=== PATIENT | male | born 1950 | race Caucasian/White ===

== ENCOUNTER 2020-07-11 06:47 | Inpatient (IN) | payer MEDICARE ==
--- NOTE | 2020-07-11 07:22 | RADIOLOGY REPORT (SQ) ---
EXAM DESCRIPTION: CT HEAD WITHOUT IV CONTRAST COMPLETED DATE/TME: 07/11/2020 07:06 CLINICAL HISTORY: 70 years Male, stroke symptoms COMPARISON: None. TECHNIQUE: No contrast. Coronal and sagittal reformat. This exam was performed according to our departmental dose-optimization program, which includes automated exposure control, adjustment of the mA and/or kV according to patient size and/or use of iterative reconstruction technique. FINDINGS: No hemorrhage or infarct. [id number] diminished attenuation of bihemispheric white matter probably due to white matter microangiopathy. No mass, mass effect, or midline shift. Atherosclerosis. Moderate left maxillary mucosal thickening. Left frontal ethmoid drainage catheter. Frontal cranial defect associated with the frontal sinus. Brain and extra-axial structures appear otherwise intact. IMPRESSION: 1. No acute findings. 2. Advanced white matter microangiopathy pattern. Differential diagnosis includes other white matter and vasogenic disease processes. Recommend comparison with prior exams and/or further MRI/MRA or contrast CT/CTA surveillance. 3. Chronic sinusitis and drainage catheter.
--- NOTE | 2020-07-11 07:23 | ER Document Report ---
ED General - General Chief Complaint: S/S of Possible Stroke Stated Complaint: POSSIBLE STROKE Time Seen by Provider: 07/11/20 07:11 - HPI Notes: Chief complaint: Possible stroke History of present illness: 70-year-old male with prior history of hemorrhagic stroke [place] state greater than 5 years ago, cigarette smoking, hypertension and diabetes stated that he was in his usual state at bedtime when he went to sleep. He awakened about 4:30 AM and attempted to get up to the bathroom. At that time he had difficulty bearing weight on his left lower extremity and also noted clumsiness and difficulty using his left upper extremity. He denies any sensory changes. He has had slight dull headache. He denies any nausea or vomiting. He denies visual changes or difficulty swallowing or speaking. Symptoms are ongoing. He indicates that his strength is improved somewhat in left upper extremity but impairment of left lower extremity is basically unchanged. - Related Data Allergies/Adverse Reactions: No Known Allergies Allergy (Unverified 07/11/20 06:49) Past Medical History - General Information source: Patient - Social History Smoking Status: Current Every Day Smoker Frequency of alcohol use: None Drug Abuse: None Family History: Reviewed & Not Pertinent - Past Medical History Cardiac Medical History: Reports: Hx Hypercholesterolemia, Hx Hypertension Neurological Medical History: Reports: Hx Cerebrovascular Accident Endocrine Medical History: Reports: Hx Diabetes Mellitus Type 2 Malignancy Medical History: Reports Hx Renal (Kidney) Cancer Past Surgical History: Reports: Other - Previous left nephrectomy Review of Systems - Review of Systems Notes: Constitutional: Negative for fever. HENT: Negative for sore throat. Eyes: Negative for visual changes. Cardiovascular: Negative for chest pain. Respiratory: Negative for shortness of breath. Gastrointestinal: Negative for abdominal pain, vomiting or diarrhea. Genitourinary: Negative for dysuria. Musculoskeletal: Negative for back pain. Skin: Negative for rash. Neurological: As per HPI. 10 point ROS negative except as marked above and in HPI. Physical Exam - Vital signs Vitals: Pulse Resp BP Pulse Ox 62 22 H 147/92 H 94 07/11/20 06:47 07/11/20 06:47 07/11/20 06:47 07/11/20 06:47 - Notes Notes: GENERAL: Well-developed well-nourished male approximately stated age appearing in no acute distress. SKIN: Good turgor no rashes. HEAD: Normocephalic atraumatic. EYES: PERRLA. EOMI. Conjunctivae and sclerae clear. EARS: CANALS AND TMS CLEAR. NOSE: CLEAR. MOUTH: Moist mucosa. Good dentition. No stridor or edema. No drooling. NECK: Supple. No masses or thyromegaly. No adenopathy. Carotids 2+ without bruits. No JVD. BACK: Symmetrical without tenderness. CHEST: Respirations unlabored. Breath sounds clear and symmetrical. HEART: Regular rhythm. No murmur gallop or rub. ABDOMEN: Soft nontender without masses, organomegaly or rebound. Bowel sounds normally active. No bruits. GENITALIA: Deferred. EXTREMITIES: No edema. No calf tenderness. Cap refill less than 1.5 seconds. Dorsalis pedis and posterior tibial pulses 3+ and symmetrical. NEUROLOGICAL: GCS 15. Alert and oriented x3. Fluent speech. Cranial nerves II through XII intact. Sensory exam is normal. Minimal weakness left upper extremity. Mild unsteadiness in finger-nose testing on the left. Finger-nose testing on the right is normal. Patient has minimal ability to lift his left lower extremity off the stretcher. PSYCHIATRIC: Appropriate affect. Course - Re-evaluation Re-evalutation: 07/11/20 07:33 Patient's neurologic exam is unchanged at this time. CT report from radiologist reviewed. The patient has microvascular changes which appear chronic. No bleeding. CTA of head and neck have been requested and I have contacted stroke center at [facility] to request transfer. 07/11/20 07:47 Case was reviewed with on-call neurologist at [facility], Dr. Enrique Walker. He agrees with plan to get CTA of head and neck. If there is any significant abnormality on this study he would wish to discuss case further. Otherwise he would feel that current findings are most consistent with a lacunar infarct and would recommend admission locally by our hospitalist. These recommendations have been discussed with the patient at this time. 07/11/20 10:15 This man has scattered atherosclerotic lesions on his CTA head and neck per radiologist. The patient did not meet criteria for administration ofTPA. There are no focal lesions which appear to be amenable to intervention. Patient is actually beginning to move the left lower extremity now showing definite improvement. He will be admitted by the hospitalist service Dr. Dill. 07/11/20 10:17 - Vital Signs Vital signs: Temp Pulse Resp BP Pulse Ox 98 F 70 17 130/80 H 97 07/11/20 10:17 07/11/20 10:00 07/11/20 11:00 07/11/20 10:00 07/11/20 11:00 - Laboratory Results Result Diagrams: 07/11/20 07:08 07/11/20 07:08 Laboratory Results Interpreted: 07/11/20 07/11/20 07:08 07:08 WBC 12.9 H RDW 14.6 H Absolute Neuts (auto) 10.4 H Seg Neutrophils % 80.7 H BUN 31 H Glucose 160 H Critical Laboratory Results Reviewed: No Critical Results - Radiology Results Radiology Results Interpreted: 07/11/20 07:[address] 07/11/20 00:00 IMPRESSION: 1. No acute findings. 2. Advanced white matter microangiopathy pattern. Differential diagnosis includes other white matter and vasogenic disease processes. Recommend comparison with prior exams and/or further MRI/MRA or contrast CT/CTA surveillance. 3. Chronic sinusitis and drainage catheter. Critical Radiology Results Reviewed: Yes Attending or Supervising Physician who Reviewed Radiology: JYOTSNA THURMAN E - EKG Interpretation by Me Additional EKG results interpreted by me: 07/11/20 07:22 Twelve-lead EKG reviewed by me contemporaneously: 0709 hrs. Indication for study: CVA Rhythm: Normal sinus Rate: 61 Intervals: Normal intervals QRS axis: +[address]/T wave changes: None Comparison with prior tracing: None Interpretation: Normal tracing Discharge - Discharge Clinical Impression: Acute CVA (cerebrovascular accident) Condition: Good Disposition: ADMITTED INPATIENT Admitting Provider: Fuentes (Hospitalist) Unit Admitted: [facility]
[2020-07-11 07:27] LABS: INTERNATIONAL RATION (INR) 0.98; PARTIAL THROMBOPLASTIN TIME 24.3 SEC (23.5-35.8); PROTHROMBIN TIME 13.2 SEC (11.4-15.4)
[2020-07-11 07:32] LABS: ABSOLUTE EOSINOPHILS # (AUTO) 0.1 10^3/uL (0.0-0.6); ABSOLUTE LYMPHOCYTES (AUTO) 1.8 10^3/uL (0.5-4.7); ABSOLUTE MONOCYTES (AUTO) 0.6 10^3/uL (0.1-1.4); ABSOLUTE NEUT (AUTO) 10.4 10^3/uL (1.7-8.2); BASOPHILS % (AUTO) 0.2 % (0-2); EOSINOPHILS % (AUTO) 0.4 % (0-6); HEMATOCRIT 45.6 % (37.9-51.0); HEMOGLOBIN 15.7 g/dL (13.5-17.0); MEAN CORPUSCULAR HEMOGLOBIN 32.4 pg (27.0-33.4); MEAN CORPUSCULAR HGB CONC 34.5 g/dL (32.0-36.0); MEAN CORPUSCULAR VOLUME 94 fl (80-97); MONOCYTES % (AUTO) 4.7 % (3-13); PLATELET COUNT 177 10^3/uL (150-450); RED BLOOD COUNT 4.86 10^6/uL (4.35-5.55); RED CELL DISTRIBUTION WIDTH 14.6 % (11.5-14.0); SEGMENTED NEUTROPHILS % (AUTO) 80.7 % (42-78); TOTAL CELLS COUNTED % (AUTO) 100 %; WHITE BLOOD COUNT 12.9 10^3/uL (4.0-10.5)
[2020-07-11 07:51] LABS: ALKALINE PHOSPHATASE 65 U/L (38-126); ANION GAP 6 (5-19); ASPARTATE AMINO TRANSFERASE 22 U/L (17-59); BILIRUBIN,DIRECT 0.2 mg/dL (0.0-0.4); BILIRUBIN,TOTAL 0.6 mg/dL (0.2-1.3); BLOOD UREA NITROGEN 31 mg/dL (7-20); CALCIUM 9.5 mg/dL (8.4-10.2); CARBON DIOXIDE 27 mmol/L (22-30); CHLORIDE 107 mmol/L (98-107); CREATINE KINASE 78 U/L (55-170); GLUCOSE 160 mg/dL (75-110); TOTAL PROTEIN 6.7 g/dL (6.3-8.2)
[2020-07-11 08:03] LABS: CREATINE KINASE MB 2.13 ng/mL (<4.55)
[2020-07-11 08:05] LABS: TROPONIN I < 0.012 ng/mL
--- NOTE | 2020-07-11 08:20 | RADIOLOGY REPORT (SQ) ---
EXAM DESCRIPTION: CHEST SINGLE VIEW IMAGES COMPLETED DATE/TIME: 07/11/2020 7:34 am REASON FOR STUDY: STROKE COMPARISON: None. EXAM PARAMETERS: NUMBER OF VIEWS: One view. TECHNIQUE: Single frontal radiographic view of the chest acquired. RADIATION DOSE: NA LIMITATIONS: None. FINDINGS: LUNGS AND PLEURA: No opacities, masses or pneumothorax. No pleural effusion. MEDIASTINUM AND HILAR STRUCTURES: No masses. Contour normal. HEART AND VASCULAR STRUCTURES: Heart normal in size. Normal vasculature. BONES: No acute findings. HARDWARE: None in the chest. OTHER: No other significant finding. IMPRESSION: NO ACUTE RADIOGRAPHIC FINDING IN THE CHEST. TECHNICAL DOCUMENTATION: JOB ID: [id number] 2010 [employer]- All Rights Reserved Reading location - IP/workstation name: [email or web address]
--- NOTE | 2020-07-11 09:14 | RADIOLOGY REPORT (SQ) ---
EXAM DESCRIPTION: CTA HEAD IMAGES COMPLETED DATE/TIME: 07/11/2020 8:56 am REASON FOR STUDY: cva COMPARISON: None. TECHNIQUE: Post IV contrast scanning, thin section axial imaging through the brain to evaluate the a rterial structures. Source and MIP images are saved and reviewed on PACS. Advanced 3D imaging as volume-rendering, MIPs, SSD performed? yes All CT scanners at this facility use dose modulation, iterative reconstruction, and/or weight based d osing when appropriate to reduce radiation dose to as low as reasonably achievable (ALARA). [facility]: Dose Right [facility]: CareDose [facility]: Dose Right [facility]: Teradose 4D [facility]: Movista CONTRAST TYPE AND DOSE: contrast/concentration: Isovue 350.00 mmol/ml; Total Contrast Delivered: 80. 0 ml; Total Saline Delivered: 75.0 ml RENAL FUNCTION: BUN 31 creatinine 1.16. LIMITATIONS: None. FINDINGS: [place]: The anterior, middle, posterior cerebral arteries are all patent. No ev idence of aneurysm or focal stenosis. POSTERIOR CIRCULATION: The distal vertebral arteries are patent as is the basilar artery. No aneurysm . BRAIN: No gross enhancing lesions as visualized. BONES: Intact as visualized. SINUSES: No fluid or mucosal thickening. OTHER: No other significant finding. IMPRESSION: NO CTA EVIDENCE OF STENOSIS OR ANEURYSM OF THE [place]. TECHNICAL DOCUMENTATION: JOB ID: [id number] Quality ID # [id number]: Final reports with documentation of one or more dose reduction techniques (e.g., Au tomated exposure control, adjustment of the mA and/or kV according to patient size, use of iterative reconstruction technique) 2010 [employer]- All Rights Reserved Reading location - IP/workstation name: [email or web address]
--- NOTE | 2020-07-11 09:18 | RADIOLOGY REPORT (SQ) ---
EXAM DESCRIPTION: CTA NECK IMAGES COMPLETED DATE/TIME: 07/11/2020 8:56 am REASON FOR STUDY: cva COMPARISON: None. TECHNIQUE: Axial dynamic scanning technique with dynamic contrast enhancement through the extra-crankshaft straightener nial carotid and vertebral arteries. Multiplanar reconstruction. 3-D MIPS and Volume-rendered imag es acquired at the workstation and saved to PACS. Images are reviewed in soft tissue, bone, lung w indows. All CT scanners at this facility use dose modulation, iterative reconstruction, and/or weight based d osing when appropriate to reduce radiation dose to as low as reasonably achievable (ALARA). [facility]: Dose Right [facility]: CareDose [facility]: Dose Right [facility]: Teradose 4D [facility]: Friends Around CONTRAST TYPE AND DOSE: 80 mL Omnipaque 350- low osmolar. RENAL FUNCTION: BUN 31 creatinine 1.16. LIMITATIONS: None. FINDINGS: AORTIC ARCH: Normal three-vessel origin. Bilateral subclavian arteries are patent. No d issection. RIGHT CAROTIDS: Patent common, internal and external carotid arteries without suggestion of significa nt stenosis or irregular plaque. No dissection. RIGHT VERTEBRAL: Small vessel which terminates at the PICA. Patent. No dissection. LEFT CAROTIDS: Patent common, internal and external carotid arteries without suggestion of significan t stenosis or irregular plaque. Calcified plaque in the carotid bulb. No dissection. LEFT VERTEBRAL: Dominant vessel. Calcified plaque in the distal vertebral artery. Patent. No disse ction. OTHER: No other significant finding. OTHER: 3-D reconstructions confirm findings. IMPRESSION: SCATTERED CALCIFIED PLAQUE DESCRIBED. NO HIGH-GRADE STENOSIS OR OCCLUSION. COMMENT: Quality ID #[id number]: Measurements of distal internal carotid diameter were used as the denomina tor for stenosis measurement. TECHNICAL DOCUMENTATION: JOB ID: [id number] Quality ID # [id number]: Final reports with documentation of one or more dose reduction techniques (e.g., Au tomated exposure control, adjustment of the mA and/or kV according to patient size, use of iterative reconstruction technique) 2010 [employer]- All Rights Reserved Reading location - IP/workstation name: [email or web address]
[2020-07-11] MEDS ORDERED: ONDANSETRON HCL INJ/PF 4 MG/2 ML SDV IV PRN (13:03)
[2020-07-11] MEDS ORDERED: ACETAMINOPHEN 325 MG TABLET PO PRN ×2 (13:03→13:12)
[2020-07-11] MEDS ORDERED: MAG HYDROX/AL HYDROX/SIMETH SUSP 30 ML UDCUP PO PRN (13:03)
[2020-07-11] MEDS ORDERED: DEXTROSE 40% GEL 15 GM TUBE PO PRN ×2 (13:11)
[2020-07-11] MEDS ORDERED: DEXTROSE 50%-WATER 25 GM/50 ML DISP.SYRIN IV PRN ×2 (13:11)
[2020-07-11] MEDS ORDERED: GLUCAGON,HUMAN RECOMB 1 MG INJ IM PRN (13:11)
--- NOTE | 2020-07-11 13:32 | PDOC H&P ---
History of Present Illness Admission Date/PCP: 07/11/20 10:22 Patient complains of: Left-sided weakness History of Present Illness: GABY CABRERA is a 70 year old male with history of diabetes mellitus-diet controlled, CVA with hemorrhage [unknown if ischemic with hemorrhagic conversion versus pure hemorrhagic], hyperlipidemia, left renal cancer status post nep hrectomy, who presents to the hospital with complaints of sudden onset left- sided weakness. His symptoms were noted upon waking up this morning around 4:30 AM. Last known normal was last night prior to sleep around 9 PM. His deficits include left arm weakness, left leg weakness and his daughter noted some facial droop. He had a prior stroke about 6 years ago when he was in [place] and noted that there was hemorrhage at that time. He states that no intervention was done and he was discharged with aspirin and statin. He later stopped taking his statin but was restarted on atorvastatin low-dose by his diabetes doctor a few days ago. He denies other neurological deficits. He states from his old stroke, his presenting symptom at that time was disequilibrium but at the time of discharge you believe you have any deficits. Past Medical History Cardiac Medical History: Reports: Hyperlipidema, Hypertension Endocrine Medical History: Reports: Diabetes Mellitus Type 2 Malignancy Medical History: Reports: Renal (Kidney) Cancer Past Surgical History Past Surgical History: Reports: Other - Previous left nephrectomy Social History Information Source: Patient, Relative Lives with: Alone Smoking Status: Current Every Day Smoker Frequency of Alcohol Use: Rare Hx Recreational Drug Use: No - Advance Directive Resuscitation Status: Full Code Family History Family History: DM, Hypertension Parental Family History Reviewed: Yes Children Family History Reviewed: Yes Sibling(s) Family History Reviewed.: Yes Medication/Allergy Allergies/Adverse Reactions: No Known Allergies Allergy (Unverified 07/11/20 06:49) Review of Systems Constitutional: ABSENT: chills, fever(s) Eyes: ABSENT: visual disturbances Nose, Mouth, and Throat: ABSENT: headache(s) Cardiovascular: ABSENT: chest pain Respiratory: ABSENT: dyspnea Gastrointestinal: ABSENT: abdominal pain, nausea, vomiting Musculoskeletal: PRESENT: other - Muscle cramping in his left leg left joint pain in the knee Integumentary: ABSENT: diaphoresis Neurological: PRESENT: weakness. ABSENT: confusion, dizziness Psychiatric: ABSENT: anxiety Endocrine: ABSENT: polyuria Hematologic/Lymphatic: ABSENT: lymphadenopathy Allergic/Immunologic: ABSENT: seasonal rhinorrhea Physical Exam Vital Signs: Temp Pulse Resp BP Pulse Ox 98 F 70 17 130/80 H 97 07/11/20 10:17 07/11/20 10:00 07/11/20 11:00 07/11/20 10:00 07/11/20 11:00 General appearance: PRESENT: no acute distress, cooperative Head exam: PRESENT: normocephalic Eye exam: PRESENT: EOMI, PERRLA Mouth exam: PRESENT: neck supple Neck exam: ABSENT: carotid bruit, JVD Respiratory exam: PRESENT: clear to auscultation lovely, symmetrical, unlabored. ABSENT: tachypnea, wheezes Cardiovascular exam: PRESENT: RRR, +S1, +S2. ABSENT: tachycardia GI/Abdominal exam: PRESENT: soft. ABSENT: rebound, rigid, tenderness Extremities exam: ABSENT: calf tenderness, full ROM, pedal edema Neurological exam: PRESENT: alert, awake, oriented to person, oriented to place, oriented to time, oriented to situation, ataxia - Has some ataxia of his left arm but I think it is mostly due to weakness, motor sensory deficit - Left arm drifts to bed underneath the bed same as left leg. 5/5 strength in the right arm and leg. ABSENT: CN II-XII grossly intact - Cranial nerves are mostly intact with exception of left facial droop and notable loss of temporal vision of right eye Psychiatric exam: ABSENT: agitated, anxious Focused psych exam: ABSENT: pressured speech Skin exam: ABSENT: jaundice Results Laboratory Results: 07/11/20 07:08 07/11/20 07:08 07/11/20 07/11/20 07:08 07:08 WBC 12.9 H RBC 4.86 Hgb 15.7 Hct 45.6 MCV 94 MCH 32.4 MCHC 34.5 RDW 14.6 H Plt Count 177 Seg Neutrophils % 80.7 H Sodium 140.2 Potassium 4.0 Chloride 107 Carbon Dioxide 27 Anion Gap 6 BUN 31 H Creatinine 1.16 Est GFR ( Amer) > 60 Glucose 160 H Calcium 9.5 Total Bilirubin 0.6 AST 22 Alkaline Phosphatase 65 Total Protein 6.7 Albumin 4.0 07/11/20 07/11/20 07:08 07:08 Creatine Kinase 78 CK-MB (CK-2) 2.13 Troponin I < 0.012 Impressions: Head CT 07/11/20 00:00 IMPRESSION: 1. No acute findings. 2. Advanced white matter microangiopathy pattern. Differential diagnosis includes other white matter and vasogenic disease processes. Recommend comparison with prior exams and/or further MRI/MRA or contrast CT/CTA surveillance. 3. Chronic sinusitis and drainage catheter. Chest X-Ray 07/11/20 07:11 IMPRESSION: NO ACUTE RADIOGRAPHIC FINDING IN THE CHEST. Head CTA 07/11/20 07:27 IMPRESSION: NO CTA EVIDENCE OF STENOSIS OR ANEURYSM OF THE [place] OF [place]. Neck CTA 07/11/20 07:28 IMPRESSION: SCATTERED CALCIFIED PLAQUE DESCRIBED. NO HIGH-GRADE STENOSIS OR OCCLUSION. Assessment and Plan - Diagnosis (1) Acute CVA (cerebrovascular accident) Is this a current diagnosis for this admission?: Yes Plan: Main deficits currently are left-sided weakness, left facial droop, stroke protocol deployed Out of the TPA window Permissive hypertension for 24 hours PT/OT/neonatal social worker/stroke educator Monitor on telemetry Aspirin now. Continue aspirin lifelong, Plavix for 21 days High-dose statin Check MRI (2) Tobacco abuse counseling Is this a current diagnosis for this admission?: Yes Plan: Had a elaborate conversation with patient about smoking cessation as this significantly increases his risk of having recurrent strokes. He is willing to try Wellbutrin. He states he has tried Chantix in the past but did not like the side effects. H he denies any history of seizures or eating disorder. We will place him on Wellbutrin. Can consider nicoderm. (3) Diabetes mellitus Qualifiers: Diabetes mellitus type: type 2 Is this a current diagnosis for this admission?: Yes Plan: He actually states that he is diet controlled and that his last A1c was 4.8. At the time of diagnosis his A1c had been 7.2. We will check an A1c in the morning. Blood sugar is 160 so placed on Accu-Cheks and sliding scale insulin. - Time Time Spent with patient: 35 or more minutes Anticipated Discharge Disposition: Home with Home Health Anticipated Discharge Timeframe: within 48 hours
[2020-07-11] MEDS ORDERED: ASPIRIN 81 MG TABLET, CHEWABLE PO ONE ×2 (13:45→17:30)
--- NOTE | 2020-07-11 16:50 | RADIOLOGY REPORT (SQ) ---
EXAM DESCRIPTION: MRI HEAD WITHOUT IMAGES COMPLETED DATE/TIME: 07/11/2020 3:03 pm REASON FOR STUDY: stroke COMPARISON: CT head dated 07/11/2020. TECHNIQUE: Multiplanar imaging includes non-contrasted T1, T2, FLAIR, and diffusion with ADC map seq uences. Images stored on PACS. LIMITATIONS: None. FINDINGS: ANATOMY: No anomalies. Normal vascular flow voids. Pituitary fossa normal. CSF SPACES: Atrophy induced prominence of ventricles and CSF spaces. CEREBRUM: High signal intensity lesions scattered throughout the white matter on FLAIR imaging with d istribution suggesting micro-vascular ischemic changes. No evidence of hemorrhage, mass, or extraaxi al fluid collection. POSTERIOR FOSSA: No signal alteration. No hemorrhage. No edema, masses or mass effect. Internal willi tory canals, cerebello-pontine angles, mastoids normal. DIFFUSION IMAGING: Small focal area of restricted diffusion in the right thalamus. ORBITS: No masses. Globes normal. PARANASAL SINUSES: No fluid levels. Mild diffuse mucous membrane thickening. OTHER: No other significant finding. IMPRESSION: ATROPHY AND CHRONIC MICRO-VASCULAR ISCHEMIC CHANGES. SMALL FOCAL AREA OF RESTRICTED DIF FUSION IN THE RIGHT THALAMUS CONSISTENT WITH RECENT INFARCT. EVIDENCE OF ACUTE STROKE: YES. RIGHT MCA. COMMENT: The findings were sent to the Radiology Results Communication Center at 16:44 on 0 to be communicated to a licensed caregiver. TECHNICAL DOCUMENTATION: JOB ID: [id number] 2010 [employer]- All Rights Reserved Reading location - IP/workstation name: [email or web address]
[2020-07-11] MEDS: INSULIN LISPRO 100 UNIT/ML 3 ML VIAL SUBCUT SCH ×2 (16:57→22:37)
[2020-07-11] MEDS: CYCLOBENZAPRINE HCL 10 MG TABLET PO PRN (17:23)
--- NOTE | 2020-07-11 17:26 | EKG REPORT ---
SEVERITY:- NORMAL ECG - SINUS RHYTHM : Confirmed by: Akosua Foote MD 11-Jul-2020 17:26:07
[2020-07-11] MEDS ORDERED: ATORVASTATIN CALCIUM 40 MG TABLET PO SCH (22:00)
[2020-07-11] MEDS: BUPROPION HCL 75 MG TABLET PO SCH (22:37)
[2020-07-12] MEDS: PANTOPRAZOLE SODIUM 20 MG TABLET.DR PO SCH (05:31)
[2020-07-12 07:19] LABS: HEMATOCRIT 45.5 % (37.9-51.0); HEMOGLOBIN 15.7 g/dL (13.5-17.0); MEAN CORPUSCULAR HEMOGLOBIN 32.5 pg (27.0-33.4); MEAN CORPUSCULAR HGB CONC 34.5 g/dL (32.0-36.0); MEAN CORPUSCULAR VOLUME 94 fl (80-97); PLATELET COUNT 155 10^3/uL (150-450); RED BLOOD COUNT 4.84 10^6/uL (4.35-5.55); RED CELL DISTRIBUTION WIDTH 14.3 % (11.5-14.0); WHITE BLOOD COUNT 10.2 10^3/uL (4.0-10.5)
[2020-07-12 07:49] LABS: ANION GAP 7 (5-19); BLOOD UREA NITROGEN 17 mg/dL (7-20); CALCIUM 9.6 mg/dL (8.4-10.2); CARBON DIOXIDE 28 mmol/L (22-30); CHLORIDE 105 mmol/L (98-107); CHOLESTEROL 250.04 mg/dL (0-200); GLUCOSE 87 mg/dL (75-110); PHOSPHORUS 4.3 mg/dL (2.5-4.5); POTASSIUM 3.8 mmol/L (3.6-5.0); TRIGLYCERIDES 138 mg/dL (<150)
[2020-07-12 08:00] LABS: DIRECT LDL 167 mg/dL (<100)
[2020-07-12] MEDS ORDERED: INFLUENZA QUAD (6MOS+) 2020-21 VAC 0.5 ML SYR IM ONE (08:00)
[2020-07-12] MEDS: INSULIN LISPRO 100 UNIT/ML 3 ML VIAL SUBCUT SCH (08:09)
[2020-07-12] MEDS: DOCUSATE SODIUM 100 MG CAPSULE PO SCH (09:18)
[2020-07-12] MEDS: CLOPIDOGREL BISULFATE 75 MG TABLET PO SCH (09:18)
[2020-07-12] MEDS: ASPIRIN 81 MG TABLET, ENT COATED PO SCH (09:19)
[2020-07-12] MEDS: BUPROPION HCL 75 MG TABLET PO SCH ×2 (09:19→21:37)
[2020-07-12] MEDS: ENOXAPARIN SODIUM INJ 40 MG/0.4 ML DISP.SYRIN SUBCUT SCH (09:19)
--- NOTE | 2020-07-12 12:22 | EKG REPORT ---
SEVERITY:- NORMAL ECG - SINUS RHYTHM : Confirmed by: Akosua Foote MD 12-Jul-2020 12:22:20
--- NOTE | 2020-07-12 13:29 | PDOC PROGRESS REPORT ---
Subjective Date:: 07/12/20 Subjective:: Patient feeling weaker in his left arm and left leg today. He also has some par esthesias in those regions. He puts good physical effort with physical therapy today. Reason For Visit: STROKR Physical Exam Vital Signs: Temp Pulse Resp BP Pulse Ox 97.9 F 90 16 134/80 H 99 07/12/20 08:34 07/12/20 11:00 07/12/20 11:00 07/12/20 11:00 07/12/20 11:00 Intake & Output 07/11/20 07/12/20 07/13/20 06:59 06:59 06:59 Output Total 550 Balance -550 Weight 85 kg General appearance: PRESENT: no acute distress, cooperative Neck exam: ABSENT: JVD Respiratory exam: PRESENT: symmetrical, unlabored. ABSENT: accessory muscle use, retraction, tachypnea Cardiovascular exam: PRESENT: RRR. ABSENT: bradycardia, irregular rhythm, tachycardia GI/Abdominal exam: PRESENT: soft. ABSENT: distended, rigid, tenderness Neurological exam: PRESENT: alert, awake, oriented to person, oriented to place, oriented to time, oriented to situation, motor sensory deficit - Left-sided weakness Psychiatric exam: ABSENT: agitated, anxious Results Laboratory Results: 07/12/20 06:38 07/12/20 06:38 07/12/20 07/12/20 07/12/20 06:38 06:38 06:38 WBC 10.2 RBC 4.84 Hgb 15.7 Hct 45.5 MCV 94 MCH 32.5 MCHC 34.5 RDW 14.3 H Plt Count 155 Sodium 140.4 Potassium 3.8 Chloride 105 Carbon Dioxide 28 Anion Gap 7 BUN 17 Creatinine 0.94 Est GFR ( Amer) > 60 Glucose 87 Calcium 9.6 Phosphorus 4.3 Magnesium 1.9 Triglycerides 138 Cholesterol 250.04 H LDL Cholesterol Direct 167 H VLDL Cholesterol 28.0 HDL Cholesterol 50 TSH 0.66 07/11/20 07/11/20 07:08 07:08 Creatine Kinase 78 CK-MB (CK-2) 2.13 Troponin I < 0.012 Impressions: Head CT 07/11/20 00:00 IMPRESSION: 1. No acute findings. 2. Advanced white matter microangiopathy pattern. Differential diagnosis includes other white matter and vasogenic disease processes. Recommend comparison with prior exams and/or further MRI/MRA or contrast CT/CTA surveillance. 3. Chronic sinusitis and drainage catheter. Head MRI 07/11/20 00:00 IMPRESSION: ATROPHY AND CHRONIC MICRO-VASCULAR ISCHEMIC CHANGES. SMALL FOCAL AREA OF RESTRICTED DIFFUSION IN THE RIGHT THALAMUS CONSISTENT WITH RECENT INFARCT. EVIDENCE OF ACUTE STROKE: YES. RIGHT MCA. Chest X-Ray 07/11/20 07:11 IMPRESSION: NO ACUTE RADIOGRAPHIC FINDING IN THE CHEST. Head CTA 07/11/20 07:27 IMPRESSION: NO CTA EVIDENCE OF STENOSIS OR ANEURYSM OF THE [place]. Neck CTA 07/11/20 07:28 IMPRESSION: SCATTERED CALCIFIED PLAQUE DESCRIBED. NO HIGH-GRADE STENOSIS OR OCCLUSION. Assessment and Plan - Diagnosis (1) Acute CVA (cerebrovascular accident) Is this a current diagnosis for this admission?: Yes Plan: Main deficits currently are left hemiparesis, left facial droop Presented out of the TPA window Walked well with physical therapy today. I think he would be an ideal candidate for acute inpatient rehab. Consulted social and political studies professor and Dr. Eric West Continue aspirin lifelong, Plavix for 21 days total. High-dose statin MRI confirms right acute thalamic stroke Telemetry reviewed-no evidence of arrhythmia/A. fib Echo tomorrow (2) Tobacco abuse counseling Is this a current diagnosis for this admission?: Yes Plan: Had a elaborate conversation with patient about smoking cessation as this significantly increases his risk of having recurrent strokes. He is willing to try Wellbutrin. He states he has tried Chantix in the past but did not like the side effects. H he denies any history of seizures or eating disorder. Started Wellbutrin. Can consider nicoderm. (3) Diabetes mellitus Qualifiers: Diabetes mellitus type: type 2 Is this a current diagnosis for this admission?: Yes Plan: He actually states that he is diet controlled and his A1c is now 4.4 though it was 7.2 at the time of diagnosis. I will discontinue Accu-Cheks and sliding scale as well. Continue diabetic low-carb diet. (4) Hyperlipidemia Qualifiers: Hyperlipidemia type: pure hypercholesterolemia Qualified Code(s): E78.00 - Pure hypercholesterolemia, unspecified; E78.0 - Pure hypercholesterolemia Is this a current diagnosis for this admission?: Yes Plan: Statin therapy - Time Time Spent with patient: 15-24 minutes Anticipated Discharge Disposition: Tertiary - inpatient rehab Anticipated Discharge Timeframe: when bed available
[2020-07-12] MEDS ORDERED: NICOTINE 14 MG/24 HR PATCH.TD24 TD PRN (13:32)
[2020-07-12] MEDS: ATORVASTATIN CALCIUM 80 MG TABLET PO SCH (21:37)
[2020-07-13] MEDS: PANTOPRAZOLE SODIUM 20 MG TABLET.DR PO SCH (05:12)
[2020-07-13] MEDS: ENOXAPARIN SODIUM INJ 40 MG/0.4 ML DISP.SYRIN SUBCUT SCH (09:49)
[2020-07-13] MEDS: ASPIRIN 81 MG TABLET, ENT COATED PO SCH (09:49)
[2020-07-13] MEDS: CYCLOBENZAPRINE HCL 10 MG TABLET PO PRN (09:49)
[2020-07-13] MEDS: CLOPIDOGREL BISULFATE 75 MG TABLET PO SCH (09:49)
[2020-07-13] MEDS: BUPROPION HCL 75 MG TABLET PO SCH ×2 (09:49→21:26)
[2020-07-13] MEDS: DOCUSATE SODIUM 100 MG CAPSULE PO SCH (09:59)
--- NOTE | 2020-07-13 11:34 | PDOC PROGRESS REPORT ---
Subjective Date:: 07/13/20 Subjective:: Weak in left side but giving good effort in therapy sessions. He has no other co mplaints otherwise. Reason For Visit: STROKR Physical Exam Vital Signs: Temp Pulse Resp BP Pulse Ox 97.4 F 81 16 137/77 H 96 07/13/20 08:00 07/13/20 08:00 07/13/20 08:00 07/13/20 08:00 07/13/20 08:00 Intake & Output 07/12/20 07/13/20 07/14/20 06:59 06:59 06:59 Intake Total 1410 Output Total 550 1430 Balance -550 -20 Weight 85 kg 81.1 kg General appearance: PRESENT: no acute distress, cooperative Neck exam: ABSENT: JVD Respiratory exam: PRESENT: symmetrical, unlabored. ABSENT: accessory muscle use, crackles GI/Abdominal exam: PRESENT: soft. ABSENT: tenderness Neurological exam: PRESENT: alert, awake, oriented to person, oriented to place, oriented to time, oriented to situation, motor sensory deficit - left arm and leg weakness Results Laboratory Results: 07/12/20 06:38 07/12/20 06:38 07/11/20 07/11/20 07:08 07:08 Creatine Kinase 78 CK-MB (CK-2) 2.13 Troponin I < 0.012 Impressions: Head CT 07/11/20 00:00 IMPRESSION: 1. No acute findings. 2. Advanced white matter microangiopathy pattern. Differential diagnosis includes other white matter and vasogenic disease processes. Recommend comparison with prior exams and/or further MRI/MRA or contrast CT/CTA surveillance. 3. Chronic sinusitis and drainage catheter. Head MRI 07/11/20 00:00 IMPRESSION: ATROPHY AND CHRONIC MICRO-VASCULAR ISCHEMIC CHANGES. SMALL FOCAL AREA OF RESTRICTED DIFFUSION IN THE RIGHT THALAMUS CONSISTENT WITH RECENT INFARCT. EVIDENCE OF ACUTE STROKE: YES. RIGHT MCA. Chest X-Ray 07/11/20 07:11 IMPRESSION: NO ACUTE RADIOGRAPHIC FINDING IN THE CHEST. Head CTA 07/11/20 07:27 IMPRESSION: NO CTA EVIDENCE OF STENOSIS OR ANEURYSM OF THE [place]. Neck CTA 07/11/20 07:28 IMPRESSION: SCATTERED CALCIFIED PLA[place] DESCRIBED. NO HIGH-GRADE STENOSIS OR OCCLUSION. Assessment and Plan - Diagnosis (1) Acute CVA (cerebrovascular accident) Is this a current diagnosis for this admission?: Yes Plan: Main deficits currently are left hemiparesis, left facial droop Presented out of the TPA window Walked well with physical therapy today. I think he would be an ideal candidate for acute inpatient rehab. Continue aspirin lifelong, Plavix for 21 days total. High-dose statin MRI confirms right acute thalamic stroke Telemetry reviewed today-no evidence of arrhythmia/A. fib since admission Echo this morning I have discussed with Dr Preethi West who will review his PT note from today and, if sufficient, patient will be going to [facility] Acute inpatient rehab tomorrow. (2) Tobacco abuse counseling Is this a current diagnosis for this admission?: Yes Plan: Had a elaborate conversation with patient about smoking cessation as this significantly increases his risk of having recurrent strokes. He is willing to try Wellbutrin and plans to stop smoking. He states he has tried Chantix in the past but did not like the side effects. He denies any history of seizures or eating disorder. Started Wellbutrin on admission. [place] (3) Diabetes mellitus Qualifiers: Diabetes mellitus type: type 2 Is this a current diagnosis for this admission?: Yes Plan: He actually states that he is diet controlled and his A1c is now 4.4 though it was 7.2 at the time of diagnosis. I discontinued Accu-Cheks and sliding scale as well. Continue low-carb diet. (4) Hyperlipidemia Qualifiers: Hyperlipidemia type: pure hypercholesterolemia Qualified Code(s): E78.00 - Pure hypercholesterolemia, unspecified; E78.0 - Pure hypercholesterolemia Is this a current diagnosis for this admission?: Yes Plan: Statin therapy - Time Time Spent with patient: Less than 15 minutes Anticipated Discharge Disposition: Tertiary - Acute rehab Anticipated Discharge Timeframe: within 24 hours
--- NOTE | 2020-07-13 12:49 | XCELERA REPORT ---
[address] [address] Transthoracic Echocardiogram Report Name: GABY CABRERA Age: 70 yrs Gender: Male : 1950 Patient Status: Inpatient Patient Location: [address] [place] [address] Study Date: 07/13/2020 09:02 AM History: CARLEY Height: 68 in Weight: 178 lb BSA: 1.9 m2 Procedure: A complete two-dimensional transthoracic echocardiogram was performed (2D, M-mode, spectral and color flow Doppler). The study was technically difficult with many images being suboptimal in quality. Reason For Study: cva Ordering Physician: RONIT THOMAS Performed By: Sabina Urbina Interpretation Summary Left ventricular systolic function is normal. The Ejection Fraction estimate is 55-60% The right ventricle is normal in size and function. There is no mitral regurgitation noted. There is no aortic valve stenosis There is a trace amount of tricuspid regurgitation There is no pericardial effusion. MMode/2D Measurements & Calculations RVDd: 2.4 cm LVIDd: 4.9 cm FS: 33.5 % Ao root diam: 3.2 cm IVSd: 0.94 cm LVIDs: 3.3 cm EDV(Teich): 113.0 ml Ao root area: 7.9 cm2 LVPWd: 0.99 cm ESV(Teich): 42.8 ml EF(Teich): 62.1 % Doppler Measurements & Calculations MV E max miles: MV dec slope: Ao V2 max: LV V1 max P.7 cm/sec 360.4 cm/sec2 106.2 cm/sec 2.8 mmHg MV A max miles: MV dec time: 0.17 secAo max PG: LV V1 max: 78.8 cm/sec 4.5 mmHg 84.4 cm/sec MV E/A: 0.80 PA V2 max: TR max miles: 74.1 cm/sec 251.2 cm/sec PA max P.2 mmHg TR max P.3 mmHg Left Ventricle The left ventricle is normal in size. There is mild concentric left ventricular hypertrophy. Left ventricular systolic function is normal. The Ejection Fraction estimate is 55-60%. Doppler measurements suggest impaired left ventricular relaxation, which is associated with grade I/IV or mild diastolic dysfunction. No regional wall motion abnormalities noted. Right Ventricle The right ventricle is normal in size and function. Atria The right atrium is normal. The left atrial size is normal. The interatrial septum is intact with no evidence for an atrial septal defect. There is no Doppler evidence for an interatrial shunt. Mitral Valve The mitral valve is grossly normal. There is no evidence of mitral valve prolapse. There is no mitral valve stenosis. There is no mitral regurgitation noted. Aortic Valve The aortic valve is normal in structure and function. The aortic valve is trileaflet. The aortic valve opens well. There is no aortic valve stenosis. No aortic regurgitation is present. Tricuspid Valve The tricuspid valve is normal in structure and function. There is a trace amount of tricuspid regurgitation. Tricuspid regurgitation jet envelope not well defined to measure RV systolic pressure accurately. Pulmonic Valve The pulmonic valve is not well visualized. There is no pulmonic valvular stenosis. There is a trace or physiologic amount of pulmonic regurgitation. Great Vessels The aortic root is normal size. Effusions There is no pericardial effusion. : RONIT THOMAS Anil
--- NOTE | 2020-07-13 17:46 | PDOC TRANSFER SUMMARY ---
General Admission Date/PCP: 07/11/20 10:22 Admission Date: 07/11/20 Transfer Date: 07/14/20 Accepting Facility: [facility] Accepting Physician: Eric West Resuscitation Status: Full Code - Transfer Diagnosis (1) Acute CVA (cerebrovascular accident) Is this a current diagnosis for this admission?: Yes (2) Tobacco abuse counseling Is this a current diagnosis for this admission?: Yes (3) Diabetes mellitus Is this a current diagnosis for this admission?: Yes (4) Hyperlipidemia Is this a current diagnosis for this admission?: Yes - Transfer Medications Transfer Medications: Current Medications Acetaminophen (Acetaminophen 325 Mg Tablet) 975 mg PO Q6HP PRN PRN Reason: FOR PAIN OR TEMP Stop: 08/10/20 13:11 Al Hydrox/Mg Hydrox/Simethicone (Mag Hydrox/Al Hydrox/Simeth Susp 30 Ml Udcup) 30 ml PO Q6HP PRN PRN Reason: HEARTBURN Stop: 08/10/20 13:02 Aspirin (Aspirin 81 Mg Tablet, Ent Coated) 81 mg PO DAILY [facility] Stop: 08/11/20 09:59 Last Admin: 07/13/20 09:49 Dose: 81 mg Documented by: Atorvastatin Calcium (Atorvastatin Calcium 80 Mg Tablet) 80 mg PO QHS [facility] Stop: 08/11/20 21:59 Last Admin: 07/12/20 21:37 Dose: 80 mg Documented by: Bupropion HCl (Bupropion Hcl 75 Mg Tablet) 75 mg PO Q12 [facility] Stop: 08/10/20 21:59 Last Admin: 07/13/20 09:49 Dose: 75 mg Documented by: Clopidogrel Bisulfate (Clopidogrel Bisulfate 75 Mg Tablet) 75 mg PO DAILY [facility] Stop: 08/11/20 09:59 Last Admin: 07/13/20 09:49 Dose: 75 mg Documented by: Cyclobenzaprine HCl (Cyclobenzaprine Hcl 10 Mg Tablet) 5 mg PO Q8HP PRN PRN Reason: MUSCLE SPASMS Stop: 08/10/20 16:54 Last Admin: 07/13/20 09:49 Dose: 5 mg Documented by: Docusate Sodium (Docusate Sodium 100 Mg Capsule) 100 mg PO DAILY [facility] Stop: 08/11/20 09:59 Last Admin: 07/13/20 09:59 Dose: 100 mg Documented by: Enoxaparin Sodium (Enoxaparin Sodium Inj 40 Mg/0.4 Ml Disp.Syrin) 40 mg SUBCUT DAILY [facility] Stop: 08/11/20 09:59 Last Admin: 07/13/20 09:49 Dose: 40 mg Documented by: Nicotine (Nicotine 14 Mg/24 Hr Patch.Td24) 1 each TD DAILYP PRN PRN Reason: WITHDRAWAL SYMPTOMS Stop: 08/11/20 13:31 Ondansetron HCl (Ondansetron Hcl Inj/Pf 4 Mg/2 Ml Sdv) 4 mg IV Q8HP PRN PRN Reason: FOR NAUSEA/VOMITING Stop: 08/10/20 13:02 Pantoprazole Sodium (Pantoprazole Sodium 20 Mg Tablet.) 20 mg PO Q6AM [facility] Stop: 08/11/20 05:59 Last Admin: 07/13/20 05:12 Dose: 20 mg Documented by: - Allergies Allergies/Adverse Reactions: No Known Allergies Allergy (Unverified 07/11/20 06:49) - Diet/Activity Discharge Diet: Diabetic Discharge Activity: Activity As Tolerated Hospital Course Hospital Course: HPI GABY CABRERA is a 70 year old male with history of diabetes mellitus-diet controlled, CVA with hemorrhage [unknown if ischemic with hemorrhagic conversion versus pure hemorrhagic], hyperlipidemia, left renal cancer status post nephre ctomy, who presents to the hospital with complaints of sudden onset left-sided weakness. His symptoms were noted upon waking up this morning around 4:30 AM. Last known normal was last night prior to sleep around 9 PM. His deficits include left arm weakness, left leg weakness and his daughter noted some facial droop. He had a prior stroke about 6 years ago when he was in [place] and noted that there was hemorrhage at that time. He states that no intervention was done and he was discharged with aspirin and statin. He later stopped taking his statin but was restarted on atorvastatin low-dose by his diabetes doctor a few days ago. He denies other neurological deficits. He states from his old stroke, his presenting symptom at that time was disequilibrium but at the time of discharge you believe you have any deficits. Course (1) Acute CVA (cerebrovascular accident) Is this a current diagnosis for this admission?: Yes Plan: Main deficits currently are left hemiparesis, mild left facial droop/lip deviat ion and notable loss of temporal vision of right eye Presented out of the TPA window Worked well with physical therapy today --> d/c to acute rehab Continue aspirin lifelong, Plavix for 17 more days to complete 21 day course. High-dose statin MRI confirms right acute thalamic stroke Telemetry reviewed -no evidence of arrhythmia/A. fib since admission Echo unremarkable. Normal EF. COVID screen is negative. (2) Tobacco abuse counseling Is this a current diagnosis for this admission?: Yes Plan: Had a elaborate conversation with patient about smoking cessation as this significantly increases his risk of having recurrent strokes. He is willing to try Wellbutrin and plans to stop smoking. He states he has tried Chantix in the past but did not like the side effects. He denies any history of seizures or eating disorder. Started Wellbutrin on admission. [place] (3) Diabetes mellitus Qualifiers: Diabetes mellitus type: type 2 Is this a current diagnosis for this admission?: Yes Plan: He actually states that he is diet controlled and his A1c is now 4.4 though it was 7.2 at the time of diagnosis. I discontinued Accu-Cheks and sliding scale as well. Continue low-carb diet. (4) Hyperlipidemia Qualifiers: Hyperlipidemia type: pure hypercholesterolemia Qualified Code(s): E78.00 - Pure hypercholesterolemia, unspecified; E78.0 - Pure hypercholesterolemia Is this a current diagnosis for this admission?: Yes Plan: Statin therapy Physical Exam Vital Signs: Temp Pulse Resp BP Pulse Ox 97.9 F 80 18 137/84 H 98 07/13/20 12:06 07/13/20 15:00 07/13/20 15:00 07/13/20 15:00 07/13/20 15:00 Intake & Output 07/12/20 07/13/20 07/14/20 06:59 06:59 06:59 Intake Total 1410 Output Total 550 1430 Balance -550 -20 Weight 85 kg 81.1 kg 81.1 kg General appearance: PRESENT: no acute distress, cooperative Neck exam: ABSENT: JVD Respiratory exam: PRESENT: clear to auscultation lovely Neurological exam: PRESENT: alert, awake, oriented to person, oriented to place, oriented to time, oriented to situation, motor sensory deficit - 3/5 Left side Psychiatric exam: ABSENT: agitated, anxious Results Laboratory Results: 07/12/20 06:38 07/12/20 06:38 07/11/20 07/11/20 07:08 07:08 Creatine Kinase 78 CK-MB (CK-2) 2.13 Troponin I < 0.012 Impressions: Head CT 07/11/20 00:00 IMPRESSION: 1. No acute findings. 2. Advanced white matter microangiopathy pattern. Differential diagnosis includes other white matter and vasogenic disease processes. Recommend comparison with prior exams and/or further MRI/MRA or contrast CT/CTA surveillance. 3. Chronic sinusitis and drainage catheter. Head MRI 07/11/20 00:00 IMPRESSION: ATROPHY AND CHRONIC MICRO-VASCULAR ISCHEMIC CHANGES. SMALL FOCAL AREA OF RESTRICTED DIFFUSION IN THE RIGHT THALAMUS CONSISTENT WITH RECENT INFARCT. EVIDENCE OF ACUTE STROKE: YES. RIGHT MCA. Chest X-Ray 07/11/20 07:11 IMPRESSION: NO ACUTE RADIOGRAPHIC FINDING IN THE CHEST. Head CTA 07/11/20 07:27 IMPRESSION: NO CTA EVIDENCE OF STENOSIS OR ANEURYSM OF THE [place]. Neck CTA 07/11/20 07:28 IMPRESSION: SCATTERED CALCIFIED [place] DESCRIBED. NO HIGH-GRADE STENOSIS OR OCCLUSION. Plan Time Spent: Less than 30 Minutes
[2020-07-13] MEDS: ATORVASTATIN CALCIUM 80 MG TABLET PO SCH (21:26)
[2020-07-14] MEDS: PANTOPRAZOLE SODIUM 20 MG TABLET.DR PO SCH (05:51)
[2020-07-14 08:59] VITALS: BP 139/80
== END 2020-07-14 10:10 | DRG 65 ==
LOC: EDBD → ER 06:47 → EH 10:22 → 5 15:21
PROVIDERS: ADMIT Internal Medicine; ATTEND Internal Medicine
DX: I63.511 Cerebral infarction due to unspecified occlusion or stenosis of right middle cerebral artery (principal); G81.94 Hemiplegia, unspecified affecting left nondominant side; F17.210 Nicotine dependence, cigarettes, uncomplicated; R47.81 Slurred speech; R29.810 Facial weakness; H53.8 Other visual disturbances; I10 Essential (primary) hypertension; E78.00 Pure hypercholesterolemia, unspecified; R40.2412 Glasgow coma scale score 13-15, at arrival to emergency department; E11.9 Type 2 diabetes mellitus without complications; Z20.828 Contact with and (suspected) exposure to other viral communicable diseases; Z85.528 Personal history of other malignant neoplasm of kidney; Z90.5 Acquired absence of kidney; Z82.49 Family history of ischemic heart disease and other diseases of the circulatory system; Z83.3 Family history of diabetes mellitus; Z71.6 Tobacco abuse counseling; Z23 Encounter for immunization
CPT/HCPCS: 36415; 70450; 70496; 70498; 70551; 71045; 80048; 80053; 80061; 82550; 82553; 82962; 83036; 83735; 84100; 84443; 84484; 85025; 85027; 85610; 85730; 90471; 90686; 93005; 93010; 93306; 99285; 0241U; C9803; G0008; J1650; J3490